=== PATIENT | male | born 1980 | race African-American/Black ===

== ENCOUNTER 2017-08-15 20:39 | Emergency (ER) | payer OTHER | END 2017-08-16 02:05 | disposition home or self-care (01) | LOC: FTE 20:39 | DX: R05 Cough (principal); F17.210 Nicotine dependence, cigarettes, uncomplicated | CPT/HCPCS: 71046; 99283-25 ==

== ENCOUNTER 2017-09-26 21:18 | Inpatient (IN) | payer OTHER ==
[2017-09-26] MEDS ORDERED: ACETAMINOPHEN 325 MG TAB PO (22:00)
[2017-09-26] MEDS: NITROGLYCERIN (SL) 0.4 MG TAB SL (22:30)
[2017-09-27 07:11] LABS: CREATINE KINASE 420 IU/L (23-200)
[2017-09-27 07:19] LABS: CK INDEX 0.4; CK-MB 1.87 ng/ml (0.0-2.4); TROPONIN-I < 0.010 ng/ml (0.000-0.120)
[2017-09-27 07:38] LABS: ADD MAN DIFF? NO
[2017-09-27 07:39] LABS: WHITE BLOOD COUNT 5.1 10^3/ul (4.8-10.8)
[2017-09-27 07:39] LABS: BASOPHILS % 0.6 % (0.0-2.0); EOSINOPHILS # 0.2 10^3/ul (0.0-0.5); EOSINOPHILS % 4.7 % (0.0-7.0); HEMATOCRIT 42.2 % (42.0-52.0); HEMOGLOBIN 14.8 g/dl (14.0-18.0); IMMATURE GRANS #M 0.01 10^3/ul; IMMATURE GRANS % (M) 0.2 %; LYMPHOCYTES # 2.3 10^3/ul (0.8-2.9); LYMPHOCYTES % 45.3 % (15.0-51.0); MEAN CORPUSCULAR HEMOGLOBIN 33.9 pg (29.0-33.0); MEAN CORPUSCULAR HGB CONC 35.1 g/dl (32.0-37.0); MEAN CORPUSCULAR VOLUME 96.6 fl (82.0-101.0); MEAN PLATELET VOLUME 9.3 fl (7.4-10.4); MONOCYTE # 0.6 10^3/ul (0.3-0.9); MONOCYTES % 11.1 % (0.0-11.0); NEUTROPHILS % 38.1 % (39.0-77.0); PLATELET COUNT 242 10^3/UL (140-415); RED BLOOD COUNT 4.37 10^6/ul (4.70-6.10)
[2017-09-27 07:58] LABS: HEMOGLOBIN A1C 5.6 % (0-5.9)
[2017-09-27 08:18] LABS: ALANINE AMINOTRANSFERASE 28 IU/L (13-69); ALBUMIN 3.7 g/dl (3.3-4.9); ALKALINE PHOSPHATASE 60 IU/L (42-121); ANION GAP 11 (8-16); ASPARTATE AMINO TRANSFERASE 34 IU/L (15-46); BILIRUBIN,INDIRECT 0.4 mg/dl (0-1.1); BILIRUBIN,TOTAL 0.4 mg/dl (0.2-1.3); BLOOD UREA NITROGEN 13 mg/dl (7-20); CALCIUM 9.2 mg/dl (8.4-10.2); CARBON DIOXIDE 24 mmol/L (21-31); CHLORIDE 111 mmol/L (97-110); CREATININE 1.08 mg/dl (0.61-1.24); GLUCOSE 89 mg/dl (70-220); POTASSIUM 4.1 mmol/L (3.5-5.1); SODIUM 142 mmol/L (135-144); TOTAL PROTEIN 6.7 g/dl (6.1-8.1)
[2017-09-27 08:19] LABS: ALBUMIN/GLOBULIN RATIO 1.23; CHOL/HDL RATIO 4.2 RATIO; CHOLESTEROL 147 mg/dl (100-200); HDL CHOLESTEROL 35 mg/dl (27-67); LDL CHOLESTEROL,CALCULATED 100 mg/dl; TRIGLYCERIDES 61 mg/dl (0-149)
[2017-09-27 08:49] LABS: THYROID STIMULATING HORMONE 0.569 MIU/L (0.465-4.680)
[2017-09-27] MEDS: ENOXAPARIN 40 MG/0.4 ML SYG SC (09:00)
[2017-09-27] MEDS: ONDANSETRON 4 MG INJ IV (09:11)
[2017-09-27] MEDS: PANTOPRAZOLE (EC) 40 MG TAB PO (10:07)
[2017-09-27] MEDS: traMADol 50 MG TAB PO ×2 (10:18→20:52)
[2017-09-27] MEDS ORDERED: IBUPROFEN 800 MG TAB PO (16:30)
[2017-09-27] MEDS ORDERED: IBUPROFEN 400 MG TAB PO (17:00)
[2017-09-27] MEDS ORDERED: DOCUSATE SODIUM 100 MG CAP PO (17:30)
[2017-09-28] MEDS: ENOXAPARIN 40 MG/0.4 ML SYG SC (09:00)
[2017-09-28] MEDS: ALPRAZOLAM 0.25 MG TAB PO (13:30)
[2017-09-28] MEDS: LORAZEPAM 2 MG INJ IV (15:30)
[2017-09-28] MEDS: SOD CHLORIDE 0.9% 100 ML (16:49)
[2017-09-28] MEDS: IODIXANOL LOCM 100 ML BTL (16:49)
== END 2017-09-28 19:22 | disposition home or self-care (01) | DRG 206 ==
LOC: TEL 21:18
DX: M94.0 Chondrocostal junction syndrome [Tietze] (principal); R53.1 Weakness; M47.812 Spondylosis without myelopathy or radiculopathy, cervical region; F12.90 Cannabis use, unspecified, uncomplicated; Z87.891 Personal history of nicotine dependence; Z88.0 Allergy status to penicillin
CPT/HCPCS: 70470; 72040; 80053; 80061; 82550; 82553; 83036; 84443; 84484; 85025; 87081; 93306; G0378